=== PATIENT | female | born 1990 | race Caucasian/White ===

== ENCOUNTER 2017-09-23 18:00 | Emergency (ER) | payer MEDICAID, SELFPAY ==
[2017-09-23 18:02] VITALS: BP 131/76; PULSE 92; RESP 18; TEMP 36.8; O2SAT 99; BMI 40.8
--- NOTE | 2017-09-23 18:19 | EKG12_ITS ---
Test Reason : UPPER EXTRIM Blood Pressure : / mmHG Vent. Rate : 074 BPM Atrial Rate : 074 BPM P-R Int : 132 ms QRS Dur : 070 ms QT Int : 388 ms P-R-T Axes : 033 042 036 degrees QTc Int : 430 ms Sinus rhythm with marked sinus arrhythmia Otherwise normal ECG Confirmed by JET BOYER, LYNETTE ([id number]), script editor SONI DIEHL ([id number] on 09/24/2017 2:35:03 PM Referred By: TACHO Confirmed By:LYNETTE CHAUDHARY MD
--- NOTE | 2017-09-23 18:21 | NURSING ---
NO OLD EKGS
--- NOTE | 2017-09-23 18:48 | ED.DCSUM_ITS ---
- ER Visit Summary Date of Service: 09/23/17 Chief Complaint: Pain, neck pain, rectal itching History of Present Illness: The patient is a 27 F with multiple complaints. The patient states that she has had some pain in her left posterior neck. She states that she felt like she slept wrong. Started 2 days ago. It hurts when she turns her neck the left. Today, she was laughing, and the pain seemed to radiate into her anterior chest. She denies any shortness of breath. It does not radiate down the arm. She denies any trauma. She is also concerned because she has had itching along her rectum. She states that she was seen at [place]. She thinks she may have had a herpes exposure. They did do testing and it was negative. She was told to keep the area dry. She states that she is still having symptoms. She denies any vaginal discharge or dysuria. She denies any back pain. Physical Examination: Vital signs reviewed General: Well-nourished, well-developed Head: Normocephalic, atraumatic Eyes: Pupils equal and reactive, extraocular muscles intact Neck, supple, no lymphadenopathy Heart: Regular rate and rhythm Respiratory: No distress, clear bilaterally Abdomen: Soft, nontender, nondistended, no peritoneal signs Back: Nontender Extremities: Nontender, no edema, no cords Skin: Normal color no rash Neuro: Alert and oriented, no focal or lateralizing deficits Test Results: [] Emergency Department Course and Treatment: The patient's pain in her neck did seem entirely muscular. She had no midline tenderness. I did obtain a chest x- ray as it did radiate to her anterior chest with laughing and coughing. I also obtained an EKG which was unremarkable. She was complaining of anal itching. Rectal exam was done with nurse drying tumbler operator. She does have what appear to be fissures and some erythema. It is not consistent with cellulitis but does appear more like a yeast infection. I am going to treat the patient with oral Diflucan as she has had increasing symptoms with topical ointments. It does not appear to be vesicular. There was no abscess. At this time, I do for the patient is safe for discharge. She will be treated with oral Diflucan. I will write her anti-inflammatories for her muscular neck pain. She will follow-up with any worsening symptoms. Treatment Plan: [] Disposition: Discharge Impression:. Cervical strain with spasm 2. Rectal itching This note was generated with [employer] dictation software. It may contain incorrect words, spelling, and punctuation that were not noted in review of the chart prior to signing ED Disposition - Plan for ED Patient: Chief Complaint: Upper Extremity Injury Instructions: ED Sprain Strain Neck, ED UTI Cystitis Female Prescriptions: Nitrofurantoin Macrocrystals [Macrobid] 100 mg PO Q12 #14 cap Cyclobenzaprine [Flexeril] 10 mg PO TID PRN #20 tab PRN Reason: Muscle Spasm Referrals: Care Physician,No Primary [Primary Care Provider] -
[2017-09-23 20:13] LABS: Mucous, Urine 0 SEEN /hpf (<or=2+)
[2017-09-23 20:18] VITALS: BP 129/80; PULSE 85; RESP 14; O2SAT 98
[2017-09-23 20:19] LABS: Color, Urine Yellow (Yellow); Glucose, Dipstick Normal (Normal); Ketone-Dipstick Negative (Negative); Leukocyte Esterase-Dipstick 500 /ul (Negative); Nitrite-Dipstick Negative (Negative); Occult Blood-Urine 250 /ul (Negative); Protein-Dipstick 100 mg/dl (Negative); Urine Bilirubin Dipstick Negative (Negative); Urine Clarity Cloudy (Clear); Urine Urobilinogen 1 mg/dl (Normal); Urine pH 6.5 (5.0 - 8.0)
[2017-09-23 20:22] LABS: Internal QC Validated? YES +Cl - CLEAR BKGD; Pregnancy, Urine Negative Negative
--- NOTE | 2017-09-23 20:22 | RAD_ITS ---
STUDY: X-RAY CHEST REASON FOR EXAM: Female, 27 years old. Shoulder pain TECHNIQUE: Frontal and lateral views of the chest. COMPARISON: July 20, 2017 FINDINGS: The lungs are clear and expanded. There is no demonstrated pleural abnormality. Normal size heart. Normal mediastinum and juan. Normal visualized pulmonary arteries. Normal visualized aortic arch and descending thoracic aorta. Normal visualized thoracic spine. Normal visualized ribs, clavicles, and shoulders. There is no demonstrated abnormality of the visualized soft tissue structures of the upper abdomen. RAD/Chest PA and Lateral IMPRESSION: Normal x-ray examination of the chest. Electronically Signed: Cosmo Gonzales MD at 21:35 EDT , Service support ,
[2017-09-23 20:28] LABS: Amorphous Sediment 2+ URATE; Bacteria 1+ /hpf (None Seen); Red Blood Cells-Urine 25-50 SEEN /hpf (0-5); Squamous Epithelial Cells - UA 5-10 SEEN /hpf (5-10); White Blood Cells 50-100 SEEN /hpf (0-5)
[2017-09-23] MEDS: Fluconazole 100 MG Tablet 150 MG PO (20:30)
[2017-09-23 20:51] VITALS: BP 136/70; PULSE 75; RESP 14; O2SAT 99
== END 2017-09-23 20:51 | disposition home or self-care (01) ==
PROVIDERS: Emergency Provider Emergency Medicine
DX: S16.1XXA Strain of muscle, fascia and tendon at neck level, initial encounter (principal); M62.838 Other muscle spasm; X58.XXXA Exposure to other specified factors, initial encounter; Y93.9 Activity, unspecified; Y92.9 Unspecified place or not applicable; N39.0 Urinary tract infection, site not specified; L29.0 Pruritus ani; Z72.0 Tobacco use
CPT/HCPCS: 71046; 81001; 81025; 93005; 99283

== ENCOUNTER 2019-06-29 18:19 | Emergency (ER) | payer SELFPAY ==
[2019-06-29 18:20] VITALS: BP 132/86; PULSE 106; RESP 17; TEMP 36.9; O2SAT 100; BMI 33.3
--- NOTE | 2019-06-29 19:08 | ED.VIS.GEN ---
History of Present Illness Chief Complaint: Abscess Informant: Patient Onset: Weeks Current Severity: Mild Maximum Severity: Mild Narrative: Patient presents with a small red lump on the anterior left neck that she has noted for the past 2 weeks. She thought it was an abscess but has not been able to get any drainage out of it. She also has noted a lump in her right groin intermittently. She denies fever or chills. She had some mild nausea but no vomiting. Past Medical History - Allergies and Home Meds Allergies/Adverse Reactions: Allergies No Known Allergies Allergy (Verified 06/29/19 18:19) Primary Care Physician: Care Physician,No Primary [Primary Care Provider] - Past Medical History: None Smoking Status: Current some day smoker Review of Systems General: Denies: Chills, Fever Eyes: Denies: Visual changes - bilaterally ENT: Denies: Bilateral ear pain Cardiovascular: Denies: Chest pain Respiratory: Denies: Dyspnea, Cough Gastrointestinal: Reports: Nausea. Denies: Abdominal pain, Vomiting, Diarrhea Skin: Reports: Abscess Neurological: Denies: Headache Endocrine: Denies: Polyuria, Polydipsia Allergy: Denies: Uticaria Physical Exam Vital Signs/Narrative: Vital Signs Temp Pulse Resp BP Pulse Ox 06/29/19 18:20 98.4 F 106 H 17 132/86 H 100 Inital Vital Signs reviewed: Yes General: Well nourished, Well developed Head: Normocephalic ENT: Moist mucous membranes Neck: Supple, - - Small, 3 mm area of folliculitis over the anterior left neck. No surrounding cellulitis. No fluctuance. Cardiovascular: Regular rate, Regular rhythm Respiratory: No distress, CTA bilaterally Abdomen: Soft, Nontender Extremities: - - Fall enlarged lymph node noted along the right groin. No evidence of abscess. Skin: - - As above Neurological: Alert, Oriented x3, Normal Strength, Normal Sensation Psychological: Normal affect Diagnostic/Tx/Re-eval - Medical Decision Making Patient has area of folliculitis that is been ongoing for at least 2 weeks. She be covered with a course of Keflex, first dose given here. ED Disposition - Plan for ED Patient: Disposition: Home or Assisted Living Diagnosis: Folliculitis Instructions: Folliculitis Prescriptions: Cephalexin [Keflex] 500 mg PO Q6 #40 cap Transmission Status: Pending to [facility]-[address] Referrals: Kamryn Riley MD [STAFF PHYSICIAN] - As Needed
[2019-06-29] MEDS: Cephalexin 250 MG Capsule 500 MG PO (19:16)
[2019-06-29 19:27] VITALS: BP 128/85; PULSE 98; RESP 16; O2SAT 97
== END 2019-06-29 19:28 | disposition home or self-care (01) ==
LOC: ED 19:24
PROVIDERS: Emergency Provider Emergency Medicine
DX: L73.9 Follicular disorder, unspecified (principal); F17.200 Nicotine dependence, unspecified, uncomplicated
CPT/HCPCS: 99283

== ENCOUNTER 2019-07-06 11:05 | Emergency (ER) | payer MEDICAID, SELFPAY ==
[2019-07-06 11:08] VITALS: BP 135/79; PULSE 78; RESP 17; TEMP 36.5; O2SAT 100; BMI 40.8
[2019-07-06 11:09] VITALS: TEMP 36.5
--- NOTE | 2019-07-06 12:46 | ED.VIS.GEN ---
History of Present Illness Chief Complaint: Complaint Informant: Patient Onset: Today Narrative: Patient states for the past couple days she has had painful urination. She denies any frequency. No fevers nausea or vomiting. No low back pain. She states she is currently on her period. Past Medical History - Allergies and Home Meds Allergies/Adverse Reactions: Allergies No Known Allergies Allergy (Verified 07/06/19 11:07) Primary Care Physician: Angelica Negrete MD [STAFF PHYSICIAN] - 1 Week if not improving Smoking Status: Current some day smoker Review of Systems General: Denies: Chills, Fever, Sweats Eyes: Denies: Visual changes - bilaterally, Diplopia ENT: Denies: Rhinorrhea, Sore throat Cardiovascular: Denies: Chest pain, Palpitations Respiratory: Denies: Dyspnea, Cough, Dyspnea on exertion Gastrointestinal: Denies: Abdominal pain, Nausea, Vomiting, Diarrhea, Melena, Hematochezia Genitourinary: Reports: Dysuria. Denies: Hematuria, Frequency Musculoskeletal: Denies: Back pain, Extremity Pain Skin: Denies: Rash, Wounds Neurological: Denies: Headache, Weakness, Numbness Physical Exam Vital Signs/Narrative: Vital Signs Temp Pulse Resp BP Pulse Ox 07/06/19 11:09 97.7 F L 07/06/19 11:08 97.7 F L 78 17 135/79 H 100 Inital Vital Signs reviewed: Yes General: Well nourished, Well developed, No Acute Distress Head: Normocephalic, Atraumatic Eyes: Perrl, EOMI ENT: Moist mucous membranes, No rhinorrhea Neck: Supple, Nontender Cardiovascular: Regular rate, Regular rhythm, No murmurs Respiratory: No distress, CTA bilaterally, Chest nontender Abdomen: Soft, Nontender, Nondistended, Normal bowel sounds Back: Nontender, Normal Inspection Extremities: Nontender, No edema Skin: Normal color, No rash Neurological: Alert, Oriented x3, Cranial nerves II-XII grossly intact, Normal Strength, Normal Sensation Psychological: Normal affect, Normal Mood Diagnostic/Tx/Re-eval - Medical Decision Making Urine is grossly infected. To be sent for culture. Patient be started on Macrobid. She is to follow-up with primary care return if worsening or concerns ED Disposition - Plan for ED Patient: Disposition: Home or Assisted Living Instructions: Bladder Infection, Female (Adult) Prescriptions: Nitrofurantoin Macrocrystals [Macrobid] 100 mg PO Q12 #10 cap Prescription Printed Phenazopyridine HCl [Pyridium] 200 mg PO TID #10 tab Prescription Printed Referrals: Angelica Negrete MD [STAFF PHYSICIAN] - 1 Week if not improving
[2019-07-06 13:11] LABS: Mucous, Urine 0 SEEN /hpf (<or=2+)
[2019-07-06 13:22] LABS: Color, Urine Red (Yellow); Glucose, Dipstick Normal (Normal); Ketone-Dipstick 5 mg/dl (Negative); Leukocyte Esterase-Dipstick 500 /ul (Negative); Nitrite-Dipstick Positive (Negative); Occult Blood-Urine 250 /ul (Negative); Protein-Dipstick 100 mg/dl (Negative); Specific Gravity, Urine 1.025 (1.002-1.030); Urine Bilirubin Dipstick Negative (Negative); Urine Clarity Turbid (Clear); Urine Urobilinogen Normal (Normal)
[2019-07-06 13:23] LABS: Internal QC Validated? YES +Cl - CLEAR BKGD; Pregnancy, Urine Negative Negative
[2019-07-06 13:33] LABS: Red Blood Cells-Urine > 100 SEEN /hpf (0-5); White Blood Cells 25-50 SEEN /hpf (0-5)
[2019-07-06 13:34] LABS: Bacteria 2+ /hpf (None Seen); Squamous Epithelial Cells - UA 5-10 SEEN /hpf (5-10)
[2019-07-06 14:14] VITALS: BP 117/87; PULSE 82; RESP 14; O2SAT 100
[2019-07-06 14:15] VITALS: BP 117/87; PULSE 82; RESP 14; O2SAT 100
== END 2019-07-06 14:17 | disposition home or self-care (01) ==
PROVIDERS: Emergency Provider Emergency Medicine
DX: N30.90 Cystitis, unspecified without hematuria (principal); F17.200 Nicotine dependence, unspecified, uncomplicated
CPT/HCPCS: 81001; 81025; 87086; 87088; 99282

== ENCOUNTER 2019-07-08 15:27 | Emergency (ER) | payer MEDICAID, SELFPAY ==
[2019-07-08 15:28] VITALS: BP 131/87; PULSE 74; RESP 18; TEMP 37.2; O2SAT 97; BMI 40.1
--- NOTE | 2019-07-08 16:21 | ED.DCSUM_ITS ---
History of Present Illness Chief Complaint: General Illness Detail of Chief Complaint: UTI, vomiting Informant: Patient Onset: Days Current Severity: Moderate Maximum Severity: Moderate Narrative: Patient presents with vomiting and UTI. She developed dysuria on 's Prisca. She was seen in the ER couple days ago and diagnosed with a UTI. She is on Macrobid and Pyridium. Patient states that she does eat when she takes her antibiotics, but feels nauseated. Last 2 days she was able to keep her medication down, but today has been vomiting. She reports having chills but no fever. - Past Medical History (1) Hypertension Status: Chronic (2) Depression Status: Chronic Past Medical History - Allergies and Home Meds Allergies/Adverse Reactions: Allergies No Known Allergies Allergy (Verified 07/08/19 15:28) Primary Care Physician: Care Physician,No Primary [Primary Care Provider] - Prior records reviewed: Yes Smoking Status: Current some day smoker Review of Systems General: Reports: Chills. Denies: Fever Eyes: Denies: Visual changes - bilaterally ENT: Denies: Bilateral ear pain Cardiovascular: Denies: Chest pain Respiratory: Denies: Dyspnea, Cough Gastrointestinal: Reports: Nausea, Vomiting. Denies: Abdominal pain Genitourinary: Reports: Dysuria Musculoskeletal: Denies: Back pain, Extremity Pain Skin: Denies: Rash Neurological: Denies: Headache Allergy: Denies: Uticaria Physical Exam Vital Signs/Narrative: Vital Signs Temp Pulse Resp BP Pulse Ox 07/08/19 15:28 98.9 F 74 18 131/87 H 97 Inital Vital Signs reviewed: Yes General: Well nourished, Well developed Head: Normocephalic ENT: Moist mucous membranes Neck: Supple Cardiovascular: Regular rate, Regular rhythm Respiratory: No distress, CTA bilaterally Abdomen: Soft, Nontender, Normal bowel sounds Back: Negative for: CVA tenderness Extremities: Nontender Skin: Normal color Neurological: Alert, Oriented x3 Psychological: Normal affect Diagnostic/Tx/Re-eval Laboratory Results 07/08/19 07/08/19 07/08/19 16:30 16:30 16:47 WBC 10.3 RBC 5.16 Hgb 13.9 Hct 42.9 MCV 83.1 MCH 26.9 L MCHC 32.4 RDW Std Deviation 42.6 RDW Coeff of Gianna 14.1 Plt Count 289 MPV 11.1 Immature Gran % (Auto) 0.500 Neut % (Auto) 89.5 H Lymph % (Auto) 5.5 L [place] % (Auto) 4.1 Eos % (Auto) 0.3 Baso % (Auto) 0.1 Absolute Neuts (auto) 9.2 H Absolute Lymphs (auto) 0.57 L Nucleated RBC % 0 Differential Comment SCANNED Sodium 140 Potassium 3.7 Chloride 109 H Carbon Dioxide 25.0 Anion Gap 6 BUN 13 Creatinine 0.87 Estim Creat Clear Calc 85.08 Est GFR (MDRD) Af Amer 98 Est GFR (MDRD) Non-Af 81 BUN/Creatinine Ratio 14.9 Glucose 104 Calcium 9.2 Urine Color Yellow Urine Clarity Clear Urine pH 6.0 Ur Specific Fields 1.020 Urine Protein 30 H Urine Glucose (UA) Normal Urine Ketones 50 H Urine Occult Blood 250 H Urine Nitrite Positive H Urine Bilirubin 3 H Urine Urobilinogen 4 H Ur Leukocyte Esterase 25 H Urine RBC 25-50 SEEN Urine WBC 10-25 SEEN Ur Squamous Epith Cells 0-5 SEEN Urine Bacteria 1+ Urine Mucus 0 SEEN - Medical Decision Making Patient was given Toradol and Zofran here. She is able to tolerate p.o. She was given a dose of IV Rocephin and antibiotics will be switched to Bactrim. She will also be written for Zofran. ED Disposition - Plan for ED Patient: Disposition: Home or Assisted Living Diagnosis: Cystitis Instructions: Bladder Infection, Female (Adult) Prescriptions: Smz/Tmp Ds [Bactrim Ds] 1 tab PO BID #6 tab Transmission Status: Pending to [facility]-[address] Ondansetron [Zofran Odt] 4 mg PO Q8H PRN PRN #10 tab PRN Reason: Nausea Transmission Status: Pending to [facility] Referrals: Angelica Negrete MD [STAFF PHYSICIAN] -
[2019-07-08] MEDS: 0.9% Normal Saline 1,000 ML 1000 ML IV (16:38)
[2019-07-08] MEDS: Ondansetron 4 MG/2 ML Vial IV (16:38)
[2019-07-08 16:39] LABS: Absolute Lymphocyte Count 0.57 X10^3/uL (0.83-4.51); Absolute Neutrophil Count 9.2 X10^3/uL (2.0-7.7); Basophil# 0.01 X10^3/uL; Basophil% 0.1 % (0-1); Eosinophil# 0.03 X10^3/uL; Eosinophils% 0.3 % (0-5); Hematocrit 42.9 % (37-47); Hemoglobin 13.9 g/dL (12.0-15.0); Lymphocyte # 0.57 X10^3/ul (4.0); Lymphocyte % 5.5 % (19-41); Mean Corp Hgb Conc 32.4 g/dL (32-36); Mean Corpuscular Hgb 26.9 pg (27.0-32.0); Mean Corpuscular Volume 83.1 fL (81-99); Mean Platelet Vol. 11.1 fl (6.2-12.0); Monocyte# 0.42 X10^3/uL; Monocyte% 4.1 % (0-10); NRBC Flagged by Analyzer 0 % (0-5); Neutrophil # 9.23 X10^3/uL (2.7-7.7); Neutrophil % 89.5 % (47-70); POSITIVE DIFFERENTIAL YES; Platelet Count 289 K/mm3 (150-450); RBC Distribution Width CV 14.1 % (11.6-14.6); RBC Distribution Width SD 42.6 fl (35.1-43.9); Red Blood Count 5.16 M/mm3 (4.2-5.4); White Blood Count 10.3 K/mm3 (4.4-11.0)
[2019-07-08] MEDS: Ketorolac 30 MG/ML Syringe IV (16:39)
[2019-07-08 16:51] LABS: Anion Gap 6 (5-15); BUN 13 mg/dL (7-18); BUN/Creat Ratio 14.9 RATIO (10-20); Calcium,Total 9.2 mg/dL (8.5-10.1); Chloride 109 mmol/L (98-107); Creatinine, Serum 0.87 mg/dL (0.55-1.02); EST Glomerular Filtration Rate 81 mL/min (>60); Est Glom Filt Rate - Afr Amer 98 mL/min (>60); Estimated Creatinine Clearance 85.08 ml/min; Glucose 104 mg/dL (74-106); Potassium 3.7 mmol/L (3.5-5.1); Sodium Level 140 mmol/L (136-145)
[2019-07-08 16:54] LABS: Mucous, Urine 0 SEEN /hpf (<or=2+)
[2019-07-08 16:56] LABS: Differential Indicated SCAN CRITERIA MET
[2019-07-08 17:00] LABS: Color, Urine Yellow (Yellow); Glucose, Dipstick Normal (Normal); Ketone-Dipstick 50 mg/dl (Negative); Leukocyte Esterase-Dipstick 25 /ul (Negative); Nitrite-Dipstick Positive (Negative); Occult Blood-Urine 250 /ul (Negative); Protein-Dipstick 30 mg/dl (Negative); Urine Bilirubin Dipstick 3 mg/dL (Negative); Urine Clarity Clear (Clear); Urine Urobilinogen 4 mg/dl (Normal)
[2019-07-08 17:06] LABS: Bacteria 1+ /hpf (None Seen); Red Blood Cells-Urine 25-50 SEEN /hpf (0-5); Squamous Epithelial Cells - UA 0-5 SEEN /hpf (5-10); White Blood Cells 10-25 SEEN /hpf (0-5)
[2019-07-08 17:10] LABS: Differential Comment SCANNED
[2019-07-08 18:18] VITALS: RESP 16
[2019-07-08] MEDS: Ceftriaxone 1 GM/50 ML BAG IV (18:41)
[2019-07-08 19:32] VITALS: BP 96/66; PULSE 90; RESP 16; O2SAT 100
--- NOTE | 2019-07-08 19:32 | ED.RN ---
REVIEWED D/C INSTRUCTIONS, FOLLOW UP CARE, PRESCRIPTIONS, AND S/S THAT WOULD WARRANT RETURN TO THE ED WITH PT. PT VERBALIZED AN UNDERSTANDING AND DENIES FURTHER QUESTIONS FOR THIS RN. PT SKIN P/W/D, RESP EVEN AND UNLABORED, PT A&O X 3, NO DISTRESS NOTED. PT AMBULATED OUT OF ED, GAIT STEADY.
== END 2019-07-08 19:34 | disposition home or self-care (01) ==
PROVIDERS: Emergency Provider Emergency Medicine
DX: N30.90 Cystitis, unspecified without hematuria (principal); R11.2 Nausea with vomiting, unspecified; I10 Essential (primary) hypertension; F17.200 Nicotine dependence, unspecified, uncomplicated; Z79.899 Other long term (current) drug therapy
CPT/HCPCS: 80048; 81001; 85025; 96361; 96365; 96375; 99283; J7030; J7050; A4216; J2405